=== PATIENT | female | born 1970 | race Two or more races ===

== ENCOUNTER 2022-12-02 13:55 | Emergency (ER) | payer BC, OTHER ==
[~2022-12-02] VITALS: Ht 165.1 cm; Wt 99.8 kg
== END 2022-12-02 19:50 | disposition home or self-care (01) ==
LOC: ER 13:55
DX: N39.0 Urinary tract infection, site not specified (principal); B96.20 Unspecified Escherichia coli [E. coli] as the cause of diseases classified elsewhere; Z16.11 Resistance to penicillins

== ENCOUNTER 2024-07-23 10:52 | Emergency (ER) | payer OTHER, BC ==
[~2024-07-23] VITALS: Ht 167.6 cm; Wt 82.1 kg
[2024-07-23] MEDS ORDERED: CELECOXIB200 MG PO (11:17)
[2024-07-23] MEDS ORDERED: AMITRIPTYLINE H50 MG PO (11:17)
[2024-07-23] MEDS ORDERED: GABAPENTIN600 MG PO (11:17)
[2024-07-23] MEDS ORDERED: NITROFURANTOIN100 M1 PO (11:17)
[2024-07-23] MEDS ORDERED: ZANAFLEX2 MG PO (11:18)
[2024-07-23 13:05] LABS: HEMATOCRIT 38.7 % (36.0-45.00); HEMOGLOBIN 13.5 g/dL (12.0-15.00); MEAN CELL VOLUME 90.2 fL (80.00-100.00); MEAN CORPUSCULAR HEMOGLOBIN 31.4 pg (27.00-32.0); MEAN CORPUSCULAR HGB CONC 34.8 g/dl (32.0-36.0); PLATELET COUNT 261 K/uL (150-450); RED CELL DISTRIBUTION WIDTH 13.1 % (11.5-14.5)
[2024-07-23 13:38] LABS: CALCIUM 9.8 mg/dL (8.5-10.1); CREATININE SERUM 0.77 mg/dL (0.55-1.02); GFR 78.12; POTASSIUM 4.01 mEq/L (3.5-5.1)
[2024-07-23 13:46] LABS: PH,URINE 5.5 (5.0-8.0); URINE APPEARANCE Cloudy; URINE BILIRRUBIN Negative (NEGATIVE); URINE BLOOD Trace; URINE COLOR Dark Yellow; URINE GLUCOSE Negative (NEGATIVE); URINE KETONE Negative (NEGATIVE); URINE LEUKOCYTE Large; URINE NITRATE Positive
[2024-07-23 13:48] LABS: URINE BACTERIA 667.7 uL (0.0-1933); URINE EPITHELIAL CELLS 10.8 uL (0.0-38.8); URINE WBC 3751.8 uL (0.0-23.2)
[2024-07-23 13:50] LABS: URINE PROTEIN 100 (NEGATIVE)
[2024-07-23 13:51] LABS: URINE CAST 0.76 uL (0.0-1.40)
[2024-07-23] MEDS ORDERED: CEFTRIAXONE SODIUM 1,000 MG VIAL IM STA (14:03)
[2024-07-23] MEDS ORDERED: CEFTRIAXONE SODIUM 1,000 MG VIAL ONE (14:22)
== END 2024-07-23 14:31 | disposition home or self-care (01) ==
LOC: ER 10:53
PROVIDERS: General Practice
DX: N39.0 Urinary tract infection, site not specified (principal); R30.0 Dysuria; B96.1 Klebsiella pneumoniae [K. pneumoniae] as the cause of diseases classified elsewhere; Z16.11 Resistance to penicillins
CPT/HCPCS: 36415; 96372; 99282; J0696